=== PATIENT | male | born 1975 | race Caucasian/White ===

== ENCOUNTER 2017-05-16 12:04 | Emergency (ER) | payer OTHER ==
[~2017-05-16] VITALS: Ht 165.1 cm; Wt 81.2 kg
[~2017-05-16 12:04] MED LIST: GLYBURIDE 2.52.5 M1 PO; METFORMIN HCL500 MG PO; PEPCID20 MG PO; PROZAC10 MG PO; ZOFRAN ODT4 MG DISSOLVE
[2017-05-16] MEDS ORDERED: AUGMENTIN 875875 MG PO (13:37)
[2017-05-16 14:36] VITALS: BP 135/92
== END 2017-05-16 14:38 | disposition home or self-care (01) ==
LOC: ER 12:04
DX: S61.452A Open bite of left hand, initial encounter (principal); I10 Essential (primary) hypertension; E11.9 Type 2 diabetes mellitus without complications; Z98.890 Other specified postprocedural states; Z88.6 Allergy status to analgesic agent; W54.0XXA Bitten by dog, initial encounter; Y93.89 Activity, other specified; Y92.096 Garden or yard of other non-institutional residence as the place of occurrence of the external cause; Y99.0 Civilian activity done for income or pay